=== PATIENT | female | born 1960 | race Caucasian/White ===

== ENCOUNTER 2018-05-25 09:34 | Inpatient (IN) ==
[2018-05-25] MEDS ORDERED: Chlorhexidine Gluconate 2% 1 Pack (2 Cloths) TOPICAL ONE (10:32)
[2018-05-25] MEDS ORDERED: Metoprolol Tartrate 25 MG Tablet PO ONE (10:32)
[2018-05-25] MEDS ORDERED: Chlorhexidine 4% Topical 120 APPLIC/120 ML Bottle TOPICAL SCH (10:45)
[2018-05-25] MEDS ORDERED: ceFAZolin 2 GM Premix Inj 2 GM/50 ML PIGGYBACK IV.SIG SCH (11:00)
[2018-05-25] MEDS ORDERED: Sodium Chlor 0.9% Inj 500 ML IV.SIG SCH (11:00)
[2018-05-25] MEDS ORDERED: Sodium Chlor 0.9% Inj 73.07 ML, Ropivacaine 0.5% PF Inj 24.63 ML, Ketorolac Inj 30 MG, ... P-ARTICULR SCH ×5 (11:00)
[2018-05-25] MEDS ORDERED: Vancomycin Inj 1,000 MG in Sodium Chlor 0.9% Inj 250 ML IV.SIG SCH (11:00)
[2018-05-25] MEDS ORDERED: Neostigmine Inj 5 MG/5 ML Syringe IV.PUSH ONE (13:07)
[2018-05-25] MEDS ORDERED: Glycopyrrolate Inj 1 MG/5 ML Syringe IV.PUSH ONE (13:07)
[2018-05-25] MEDS ORDERED: Lidocaine PF 1% Inj 5 ML Syringe OTHER ONE (13:07)
[2018-05-25] MEDS ORDERED: Post-op Orders (for Pharmacy) OTHER STA (15:53)
[2018-05-25] MEDS ORDERED: Morphine Inj 4 MG/ML Vial IV.PUSH PRN (15:53)
[2018-05-25] MEDS ORDERED: Bisacodyl 10 MG Supp RECTAL PRN (15:53)
--- NOTE | 2018-05-25 15:57 | P.DCO ---
- Physical Therapy Physical Therapy: Gait training, Safety evaluation Knee: Total knee, Protocol: Left, Full weight bearing - Nursing RN: 3 days/week x 2 weeks Nursing: Dressing changes (clean incision with alcohol and apply dry, sterile dressing daily ) Additional instructions: Pt/INR q Friday and , call/text results to Citlaly DEL VALLE cell # [phone] Goal INR 1.5-1.8 Knee high teds during day time, make take off at night - Certification Need for Home Health services: I have seen patient Davis Barakat on 05/25/18. My clinical findings support the need for the requested home health care services because: Need for Home Health Services: High risk of falls Homebound Certification: I certify that my clinical findings support that this patient is homebound because: Homebound Certification: Post-op weakness
[2018-05-25] MEDS ORDERED: fentaNYL Citrate Inj 100 MCG/2 ML Ampul ONE (16:00)
[2018-05-25] MEDS ORDERED: *Ondansetron Inj 4 MG/2 ML Vial PERIprocedural Use ONLY ONE (16:09)
[2018-05-25] MEDS ORDERED: *Meperidine Inj 25 MG/ML Vial PERIprocedural Use ONLY ONE (16:09)
--- NOTE | 2018-05-25 16:15 | XR ---
EXAM DATE: 05/25/2018 4:10 PM EST AGE/SEX: 58 years / Female INDICATIONS: Post left total knee replacement CLINICAL DATA: This is the patient's initial encounter. Patient reports that signs and symptoms have been present for 1 day and indicates a pain score of 0/10. MEDICAL/SURGICAL HISTORY: Arthritis. Non-responsive. COMPARISON: No prior exams available for comparison. FINDINGS: Post surgical changes following left knee replacement are noted. Prosthetic components appear to be well seated and satisfactorily aligned. Surgical drain is identified in the suprapatellar region. CONCLUSION: Satisfactory postoperative appearance of the left knee following knee replacement. Electronically signed by: Jesus Haque MD 05/25/2018 4:13 PM EST
[2018-05-25 16:30] LABS: INR 1.1 Ratio; Prothrombin Time 11.1 sec (9.8-11.6)
--- NOTE | 2018-05-25 17:30 | MP ---
cc: Home Davila MD [facility],Abril FAN DATE OF OPERATION: PREOPERATIVE DIAGNOSES: 1. Left knee severe tricompartment osteoarthritis. 2. Morbid obesity. POSTOPERATIVE DIAGNOSES: 1. Left knee severe tricompartment osteoarthritis. 2. Morbid obesity. PROCEDURE PERFORMED: Left total knee arthroplasty - cemented Biomet-Vanguard. SURGEON: Home Davila MD QA AUTOMATION DEVELOPER: Citlaly Ovalles PA-C TOURNIQUET TIME: 73 minutes at 275 mmHg. ANESTHESIA: General, adductor canal saphenous nerve block, intraarticular block. COMPLICATIONS: None. DRAIN: Two. PLAN OF ACTIVITY: Per orders. My phys assistant, Citlaly Ovalles PA-C, was present for the entirety of surgical case. She was medically necessary for the entire case because of the complexity of the case and to facilitate the performance of the procedure. The STONECUTTER HAND at the back table was not of skill set for this case to manipulate the instruments, e.g., multiple soft tissue retractors, trial implants, and permanent implants, including bone cement. PROCEDURE DETAILS: The patient was brought in the operating room and had satisfactory general anesthesia by Department of Anesthesia. She also had a left lower extremity adductor canal, a saphenous nerve block. The patient is morbidly overweight. Great care was made to protect all pressure points. Left lower extremity was prepped and draped in usual sterile manner. The extremity was exsanguinated by elevation and tourniquet was inflated to 275 mmHg. A small anterior exposure of the knee was made. Dissection carried through a considerable amount of adipose tissue down to the underlying fascia. Paramedian capsulotomy was performed. The patella was dislocated laterally. The patient was found to have severe tricompartmental osteoarthritis involving all three compartments of the knee. The remaining portion of medial and lateral meniscus removed. The anterior cruciate ligament was removed. Posterior cruciate ligament was preserved. Prepatellar fat pad was surgically excised. I used the Biomet-Vanguard total knee arthroplasty system. IM guide was used for distal femur to accept a 67.5 mm femoral component. External guide was used for the proximal tibia to accept a 75 mm tibial component. The knee was balanced in both flexion and extension. Posteromedial osteophytes off the distal femur removed using osteotomes and soft tissue dissection off the medial osteophyte, proximal tibia and loose body was also removed. The patient was found to have appropriate balancing both flexion and extension. Undersurface of the patella was removed to accept the 31 mm 3-pronged patellar prosthesis. All trial components were removed and preparation for cementing was made. The knee was initially anesthetized with 100 mL of local anesthesia provided by the Department of Pharmacy. The knee was then irrigated with sterile skin antibiotic solution. First, the tibial component was cemented followed by the femoral component and a 10 mm polyethylene trial was inserted, and then the undersurface a 31 mm 3-pronged patellar prostheses were then cemented to the patella. The knee was irrigated with 4000 mL sterile saline antibiotic solution. The bone cement was allowed to harden for 12.5 minutes. Then, a 10 x 75 mm lipped tibial prosthesis polyethylene plastic was then sewn onto the proximal tibia with appropriate click clipping mechanism. Tourniquet was deflated. All bleeders were coagulated. A lateral retinacular release was performed at this time in which the patella then was found to track well in the patellofemoral compartment with the "no thumbs technique." The wound was closed over two 8 inch Hemovac drains. Wound itself was dry. It was closed with multiple interrupted #2 Ti-Cron suture, 0 Vicryl, 2-0 Vicryl and skin was approximated with skin chico. Sterile dressings were applied. The patient tolerated the procedure well and went to the recovery room in stable and satisfactory condition. MD GARFIELD Tsai/ojshua , 03:40 PM , 03:57 PM
[2018-05-25] MEDS: Senna/Docusate Sodium 8.6/50 MG Tablet PO SCH (21:26)
[2018-05-25] MEDS: ceFAZolin 1 GM Premix Inj 1 GM/50 ML FROZ.PIGGY IV.SIG SCH (21:27)
[2018-05-26] MEDS: ceFAZolin 1 GM Premix Inj 1 GM/50 ML FROZ.PIGGY IV.SIG SCH ×2 (02:30→08:14)
--- NOTE | 2018-05-26 06:52 | P.PNOP ---
Subjective Interval history: POD#1 L TKR No chest pain;no SOB Explained operative findings,answered multiple questions Patient wants to go home today Physical Exam Vital signs: Vital Signs 05/25/18 11:02 05/25/18 11:26 05/25/18 15:51 Temperature 98.2 F 97.6 F Pulse Rate 96 H 59 L 77 Respiratory Rate 16 20 Blood Pressure 118/70 134/91 H Pulse Oximetry 96 94 L 99 05/25/18 16:00 05/25/18 16:15 05/25/18 16:30 Temperature Pulse Rate 68 68 75 Respiratory Rate 16 17 18 Blood Pressure 145/89 H 143/70 H 141/67 H Pulse Oximetry 95 97 97 05/25/18 16:45 05/25/18 16:54 05/25/18 17:22 Temperature 97.5 F L 97.5 F L Pulse Rate 79 75 78 Respiratory Rate 16 17 14 Blood Pressure 142/65 H 142/70 H 142/69 H Pulse Oximetry 98 98 98 05/25/18 21:05 05/25/18 23:00 05/26/18 03:20 Temperature 97.6 F 98.0 F 97.7 F Pulse Rate 83 71 61 Respiratory Rate 17 18 17 Blood Pressure 145/60 H 112/58 L 119/57 L Pulse Oximetry 94 L 97 95 Intake & Output 05/25/18 05/25/18 05/26/18 06:59 18:59 06:59 Intake Total 1800 / 1800 18790 Output Total 130 / 130 Balance 1670 / 1670 1879 / 1880 Weight 118.7 kg 118.7 kg Intake: IV 1100 / 1100 LR 1000 mL Inj 1,000 ML @ 80 1000 / 1000 mls/hr IV.CONT .[id number] NICKY Rx# :[id number] Ancef 1 GM Premix Inj 1 gm In 100 / 100 50 ml @ 100 mls/hr IV.SIG Q6H NICKY Rx#:[id number] Oral 780 / 780 Anesthesia Amount 1800 / 1800 Output: Estimated Blood Loss 100 / 100 Wound Drainage # 1 Left Knee Hemovac Other: # Voids 3 Date of Last Bowel Movement 05/25/18 Weight On Admission 118.7 kg Narrative: N/V intact No calf tenderness;neg shanta's Results - Labs Laboratory Results - last 24 hr 05/25/18 05/25/18 10:42 16:05 PT 11.1 INR 1.1 Blood Type A Positive Antibody Screen Negative MTS Gel Crossmatch See Detail - Imaging Impressions Knee X-Ray 05/25/18 15:47 CONCLUSION: Satisfactory postoperative appearance of the left knee following knee replacement. Assessment and Plan - Problem List (1) Osteoarthritis of left knee Code(s): M17.12 - Unilateral primary osteoarthritis, left knee Status: Acute - Assessment and Plan ortho stable HHn RN/PT Coumadin,TEDS for DVT/PE prophylaxsis Discharge home today
[2018-05-26 08:10] LABS: Hematocrit 36.7 % (35.0-46.0); Hemoglobin 12.6 gm/dL (11.6-15.3)
[2018-05-26] MEDS: Senna/Docusate Sodium 8.6/50 MG Tablet PO SCH (08:15)
[2018-05-26] MEDS ORDERED: PHENTERMINE PO SCH ×2 (09:00)
[2018-05-26] MEDS ORDERED: PT:LINZESS 145 MCG PO SCH (09:00)
[2018-05-26] MEDS ORDERED: PT:INVOKANA 300 MG PO SCH (09:00)
--- NOTE | 2018-05-26 11:07 | P.CON ---
History of Present Illness Service: Hospitalist Consult date: 05/26/18 Requesting Physician: Citlaly Ovalles Reason for Consult: Assist with ongoing medical management Primary Care Provider: Abril Talley MD Chief Complaint: s/p left TKA History of Present Illness: This is a 58-year-old female with a past medical history significant for legal blindness, narrow angle glaucoma, chronic constipation, fibromyalgia, diabetes and osteoarthritis who tried and failed numerous attempts at conservative management of left knee pain and underwent elective left total knee replacement surgery performed by Dr. Davila on 05/25/18. Hospitalist services have been consulted to assist with ongoing medical management. Patient seen and examined. Patient states she feels very well. Actually, she is planning to be discharged later today. She states her postop pain is well controlled in the left knee. She reports left leg numbness. She says she did not sleep well last night but not because of pain. She states she has chronic issues with insomnia. She denies any fever or chills. She denies any chest pain or shortness of breath. She denies any nausea, vomiting or abdominal pain. She has not had a bowel movement since admission but states she is passing flatus. She is urinating without any difficulties. She is already ambulated some in the hallway with the assistance of physical therapy. Review of Systems All other systems reviewed negative except as stated in HPI PMFSH - History History Provided By: Patient - Medical History Medical History: Medical History (Last Reviewed 05/26/18 @ 07:46 by Hetal Ellis) Narrow angle glaucoma suspect of both eyes Arthritis Back pain Constipation Diabetes Diverticulitis Fibromyalgia Glaucoma Joint pain Legally blind Neck pain Sciatica - Surgical History Surgical History: Surgical History (Last Reviewed 05/26/18 @ 07:46 by Hetal Ellis) History of arthroplasty History of arthroscopy of both knees History of detached retina repair - Family History Family History: Family History (Last Updated 05/26/18 @ 12:19 by Shazia Lovett) Other Adopted Family history not known due to adoption - Social History I have reviewed the patient's Social History: Yes - Tobacco History Second Hand Smoke Exposure: Yes Tobacco Use In Past 30 Days: Yes Smoking Status: Current every day smoker Tobacco Type: Cigarettes - Alcohol History How Often Do You Have a Drink Containing Alcohol: 2 to 3 times a week - Substance Use History Substance History: Active Abuse - Substance Use Type Marijuana Status: Active Route Used: Inhalation Frequency: monthly if that Reason for Use: Calm Down Medications and Allergies Active Medications: Active Medications Hydrocodone Bitart/Acetaminophen ([place] 7.5/325) 1 tab PO Q4H PRN PRN Reason: PAIN LESS THAN 5 ON SCALE Last Admin: 05/25/18 17:59 Dose: 1 tab Hydrocodone Bitart/Acetaminophen ([place] 7.5/325) 2 tab PO Q6H PRN PRN Reason: PAIN SCALE 5 TO 10 Last Admin: 05/26/18 10:11 Dose: 2 tab Al Hydroxide/Mg Hydroxide (Milk Of Magnesia Liq) 30 ml PO BID PRN PRN Reason: Mild Constipation Bisacodyl (Dulcolax Supp) 10 mg RECTAL DAILY PRN PRN Reason: SEVERE CONSITIPATION Chlorhexidine Gluconate (Hibiclens 4% Topical) 1 applicatio TOPICAL ONCE [facility] Stop: 05/29/18 10:44 Last Admin: 05/25/18 11:15 Dose: 1 applicatio Vancomycin HCl 1,000 mg/ (Sodium Chloride) 250 mls @ 250 mls/hr IV.SIG LANDSCAPE MANAGEMENT TECHNICIAN [facility] Stop: 05/28/18 10:36 Last Admin: 05/25/18 13:07 Dose: 250 mls/hr Cefazolin Sodium/Dextrose (Ancef 2 Gm Premix Inj) 2 gm in 50 mls @ 100 mls/hr IV.SIG LANDSCAPE MANAGEMENT TECHNICIAN [facility] Stop: 05/29/18 10:59 Last Admin: 05/25/18 13:26 Dose: 100 mls/hr Lactated Ringer's (Lr 1000 Ml Inj) 1,000 mls @ 80 mls/hr IV.CONT .[id number] [facility] Last Infusion: 05/26/18 04:30 Dose: Infused Lactulose (Lactulose Liq) 30 ml PO DAILY PRN PRN Reason: SEVERE CONSITIPATION Miscellaneous Information (Misc Nursing Information) 0 each OTHER UNSCH PRN PRN Reason: SEE LABEL COMMENTS Stop: 05/26/18 15:49 Ondansetron HCl (Zofran Odt) 4 mg PO Q6H PRN PRN Reason: NAUSEA OR VOMITING Pt:Invokana 300 Mg 0 each PO DAILY [facility] Pt:Linzess 145 Mcg 0 each PO DAILY [facility] Pt:Phentermine 18.5 (Mg) 0 each PO DAILY [facility] Senna/Docusate Sodium (Tanesha-Colace) 1 tab PO BID [facility] Last Admin: 05/26/18 08:15 Dose: Not Given Sennosides (Senokot) 17.2 mg PO BID PRN PRN Reason: Moderate Constipation Sodium Chloride (Ns Flush) 2 ml IV.FLUSH BID [facility] Last Admin: 05/26/18 08:15 Dose: 2 ml Sodium Chloride (Ns Flush) 2 ml IV.FLUSH PRN PRN PRN Reason: FLUSH AFTER USING IV ACCESS Warfarin Sodium (Coumadin) 0 mg PO DAILY@1600 [facility]; Protocol Allergies Allergy/AdvReac Type Severity Reaction Status Date / Time No Known Allergies Allergy Verified 05/25/18 10:58 Home Medications Medication Instructions Recorded Confirmed Type canagliflozin [Invokana] 300 mg PO DAILY 05/07/18 05/25/18 History linaclotide [Linzess] 145 mcg PO DAILY 05/07/18 05/25/18 History phentermine 18.5 mg PO DAILY 05/07/18 05/25/18 History Physical Exam Vital signs: Vital Signs 05/25/18 11:26 05/25/18 15:51 05/25/18 16:00 Temperature 97.6 F Pulse Rate 59 L 77 68 Respiratory Rate 20 16 Blood Pressure 134/91 H 145/89 H Pulse Oximetry 94 L 99 95 05/25/18 16:15 05/25/18 16:30 05/25/18 16:45 Temperature 97.5 F L Pulse Rate 68 75 79 Respiratory Rate 17 18 16 Blood Pressure 143/70 H 141/67 H 142/65 H Pulse Oximetry 97 97 98 05/25/18 16:54 05/25/18 17:22 05/25/18 21:05 Temperature 97.5 F L 97.6 F Pulse Rate 75 78 83 Respiratory Rate 17 14 17 Blood Pressure 142/70 H 142/69 H 145/60 H Pulse Oximetry 98 98 94 L 05/25/18 23:00 05/26/18 03:20 05/26/18 08:00 Temperature 98.0 F 97.7 F 98.2 F Pulse Rate 71 61 62 Respiratory Rate 18 17 16 Blood Pressure 112/58 L 119/57 L 118/60 Pulse Oximetry 97 95 93 L Intake & Output 1105/26/18 05/26/18 18:59 06:59 18:59 Intake Total 1800 / 1800 1880 / 1880 50 / 50 Output Total 130 / 130 75 / 75 Balance 1670 / 1670 1805 / 1805 50 / 50 Weight 118.7 kg 118.7 kg Intake: IV 1100 / 1100 50 / 50 LR 1000 mL Inj 1,000 ML @ 80 1000 / 1000 mls/hr IV.CONT .[id number] NICKY Rx# :[id number] Ancef 1 GM Premix Inj 1 gm In 100 / 100 50 / 50 50 ml @ 100 mls/hr IV.SIG Q6H NICKY Rx#:[id number] Oral 780 / 780 Anesthesia Amount 1800 / 1800 Output: Estimated Blood Loss 100 / 100 Wound Drainage 75 / 75 # 1 Left Knee Hemovac / 75 Other: # Voids 3 Date of Last Bowel Movement 05/25/18 Weight On Admission 118.7 kg Narrative: GENERAL: WDWN obese middle aged female patient, INAD. Awake and alert. Appears comfortable. SKIN: Warm and dry. HEAD: Atraumatic. Normocephalic. EYES: Pupils equal and round. No scleral icterus. No injection or drainage. + Blindness. ENT: No nasal bleeding or discharge. Mucous membranes pink and moist. NECK: Trachea midline. CARDIOVASCULAR: Regular rate and rhythm. RESPIRATORY: No accessory muscle use. Clear to auscultation. Breath sounds equal bilaterally. GASTROINTESTINAL: Abdomen soft, non-tender, nondistended. Hepatic and splenic margins not palpable. MUSCULOSKELETAL: Extremities without clubbing, cyanosis, or edema. s/p Left TKA , left knee in postop dressing, C/D/I. Decreased sensation LLE. NEUROLOGICAL: Awake and alert. No obvious cranial nerve deficits. Motor grossly within normal limits. Able to move all extremities spontaneously. Normal speech. PSYCHIATRIC: Appropriate mood and affect; insight and judgment normal. Assessment and Plan - Plan 58-year-old female with a past medical history significant for legal blindness, narrow angle glaucoma, chronic constipation, fibromyalgia, diabetes and osteoarthritis who tried and failed numerous attempts at conservative management of left knee pain and underwent elective left total knee replacement surgery performed by Dr. Davila on 05/25/18. Hospitalist services have been consulted to assist with ongoing medical management. Left knee osteoarthritis failed attempts at conservative management status post elective left total knee arthroplasty H/H stable postop -Management per orthopedic team -continue with PT -pain management with bowel regimen Diabetes patient takes Invokana at home -accucheks and ISS -continue to monitor blood sugars and adjust insulin as needed -diabetic diet Chronic constipation patient is on Linzess at home -Patient has brought her on Linzess from home but does not wish to take until she goes home -continue on PeriColace BID -monitor for BM Legal blindness Narrow angle glaucoma -stable Morbid obesity -discussed lifestyle modifications Ongoing tobaccoism Marijuana use -discussed nicotine smoking cessation especially in light of recent TKA -discussed cessation of marijuana use DVT prophylaxis -Coumadin per Ortho service - goal INR 1.5-1.8 per Ortho Thank you for the opportunity to assist in the care of your patient. We will follow patient along with you. Discussed Condition With: patient, Dr. Nelson Discharge Planning: discharge disposition per Ortho service
[2018-05-26] MEDS ORDERED: Dextrose 50% in Water 50 ML Vial IV.PUSH PRN (12:08)
[2018-05-26] MEDS ORDERED: Insulin NovoLOG Aspart Correctional Sugar Inj SQ SCH (17:00)
== END 2018-05-26 14:49 ==
LOC: HSDC 09:34 → EDSTATUS 14:30 → HSDI 15:47 → N06 17:13
PROVIDERS: ADMIT Orthopaedic Surgery Orthopaedic Surgery of the Spine; ATTEND Orthopaedic Surgery Orthopaedic Surgery of the Spine